=== PATIENT | female | born 1980 | race Caucasian/White ===

== ENCOUNTER 2018-10-15 01:55 | Inpatient (IN) | payer BC ==
[2018-10-15 02:40] VITALS: BMI 26.6
--- NOTE | 2018-10-15 02:45 | OBHP ---
Datetime: 10/15/2018 02:37 IP Adm Impression: Term, intrauterine ; No Active Labor; Ruptured Membranes IP Admit Plan: Admit to unit Admit Comment, IP Provider: 37 presents today with complaints of leaking fluid since 11pm. Gabriella oliver contractions POBHX: X 1 2012 #5.15 PMHX: NONE PSHX; NONE SOCIAL NEGATIVE X 3 MEDS: NONE ALL: NKDA SVE: 3 CAT: 1 NO CONTRACTIONS NOTED ON THE MONTIOR A/P @ 39+ PROM - ADMIT - NPO - IVF - START OXYTOCIN - PLAN D/W DR. LUIS Pelvic Type - PN: Adequate Extremities - PN: Normal Abdomen - PN: Normal Back - PN: Normal Breast - PN: Normal Lungs - PN: Normal Heart - PN: Normal Thyroid - PN: Normal Neurologic - PN: Normal HEENT - PN: Normal General - PN: Normal FHR - Baseline A Provider: 150 Membranes, Provider: Ruptured Contraction Comments Provider: none Gestation - Est Wks by US: 39+ Pool Provider: Positive Nitrazine Provider: Positive EGA AdmitDate IP: 39.3 Vital Signs Provider: Reviewed IP Chief Complaint: Uterine contractions NICHD Variability Prov Fetus A: Moderate 6-25bpm NICHD Accel Fetus A IP Provider: 15X15 FHR Category Provider Fetus A: Category I Dilatation, Provider: 1 Effacement, Provider: 30 Station, Provider: -4 Genitourinary Exam: Normal DTRs - PN: Normal
[2018-10-15] MEDS ORDERED: Oxytocin 30 UNIT 30 UNITS/500 ML BAG IV ONE ×3 (02:46→03:25)
[2018-10-15] MEDS ORDERED: Lactated Ringer's 1,000 ML IV ONE (02:46)
--- NOTE | 2018-10-15 02:52 | OBADHP ---
Datetime: 10/15/2018 02:37 Admit Comment, IP Provider: 37 presents today with complaints of leaking fluid since 11pm. Gabriella oliver contractions POBHX: X 1 2012 #5.15 PMHX: NONE PSHX; NONE SOCIAL NEGATIVE X 3 MEDS: NONE ALL: NKDA SVE: 3 CAT: 1 NO CONTRACTIONS NOTED ON THE MONTIOR A/P @ 39+ PROM - ADMIT - NPO - IVF - START OXYTOCIN - PLAN D/W DR. LUIS Pelvic Type - PN: Adequate Extremities - PN: Normal Abdomen - PN: Normal Back - PN: Normal Breast - PN: Normal Lungs - PN: Normal Heart - PN: Normal Thyroid - PN: Normal Neurologic - PN: Normal HEENT - PN: Normal General - PN: Normal FHR - Baseline A Provider: 150 Membranes, Provider: Ruptured Contraction Comments Provider: none Gestation - Est Wks by US: 39+ Pool Provider: Positive Nitrazine Provider: Positive Vital Signs Provider: Reviewed IP Chief Complaint: Uterine contractions NICHD Variability Prov Fetus A: Moderate 6-25bpm NICHD Accel Fetus A IP Provider: 15X15 FHR Category Provider Fetus A: Category I Dilatation, Provider: 1 Effacement, Provider: 30 Station, Provider: -4 Genitourinary Exam: Normal DTRs - PN: Normal EGA AdmitDate IP: 39.3 IP Adm Impression: Term, intrauterine ; No Active Labor; Ruptured Membranes IP Admit Plan: Admit to unit
[2018-10-15] MEDS ORDERED: Lactated Ringer's 1,000 ML IV SCH (03:00)
[2018-10-15 03:25] LABS: BASO # 0.1 K/uL (0.0-0.2); EOS # 0.2 K/uL (0.0-0.7); EOS % 2.8 % (0.0-4.0); HEMOGLOBIN 12.5 g/dL (11.0-16.0); LYMPH # 1.6 K/uL (1.0-4.3); LYMPH % 21.1 % (20.0-40.0); MEAN CELL VOLUME 94.4 fL (81.0-99.0); MEAN CORPUSCULAR HEMOGLOBIN 31.4 pg (27.0-31.0); MEAN CORPUSCULAR HGB CONC 33.3 g/dL (33.0-37.0); MEAN PLATELET VOLUME 9.8 fL (7.2-11.7); MONO # 0.7 K/uL (0.0-0.8); MONO % 9.1 % (0.0-10.0); NRBC % 0.1 % (0.0-2.0); RBC 3.99 Mil/uL (3.80-5.20); RED CELL DISTRIBUTION WIDTH 14.2 % (11.5-14.5); WHITE BLOOD COUNT 7.6 K/uL (4.8-10.8)
[2018-10-15 03:27] LABS: SQUAMOUS EPITHIAL 8 /hpf (0-5); URINE BILIRUBIN NEGATIVE (NEGATIVE); URINE BLOOD NEGATIVE (NEGATIVE); URINE CLARITY Clear (Clear); URINE COLOR Yellow (YELLOW); URINE GLUCOSE (UA) NORMAL (Normal); URINE HYALINE CAST 0-2 /lpf (0-2); URINE LEUKOCYTE ESTERASE NEG Leu/uL (Negative); URINE PROTEIN 1+ mg/dL (NEGATIVE); URINE UROBILINOGEN NORMAL mg/dL (0.2-1.0)
[2018-10-15 03:37] LABS: ALB/GLOB RATIO 1.1 (1.0-2.1); ALBUMIN 3.4 g/dL (3.5-5.0); ALT/SGPT 24 U/L (9-52); AST/SGOT 23 U/L (14-36); BLOOD UREA NITROGEN 10 mg/dL (7-17); CALCIUM 8.4 mg/dl (8.6-10.4); GFR NON-AFRICAN AMERICAN > 60
[2018-10-15 04:07] LABS: HEPATITIS B SURFACE AG Negative (NEGATIVE)
[2018-10-15] MEDS ORDERED: Bupivacaine HCl/FentaNYL Cit 100 ML EPI ONE (07:20)
[2018-10-15] MEDS ORDERED: Lidocaine Hydrochloride 5 ML INJ ONE (08:29)
[2018-10-15] MEDS ORDERED: Oxycodone/Acetaminophen 5/325 mg Tab PO PRN (09:00)
--- NOTE | 2018-10-15 09:09 | OBDS ---
MATERNAL INFORMATION Provider Comments: pt was fully dilated and pushing. atraumtic, spontaneus delivery of head in MICHAEL p osition. No nuchal cord. Atraumtic, spontaanous delivery of anterior followed by poserior shoulder f ollowed by deliver yof lauren body. Both oral and nasal passages of lauren baby were bulb suctioned. Umbilc al cord was clmaped adn cut. Baby was hadned to mother on abdomen with RN assisatnce. Cord bood adn c ord gases colleczted adn sent x 2. Spontanoeus delivery of intact placenta with membranes, fundus fir m. Good hemostaiss, first degree pereineal laceraion noted adn repaired iwth 2-0 chormic. Good hemos irish, no compications live female ifnat pa 9,9 weight of 6lbs 1 ounce ebl 300ml LABOR SUMMARY EDC: 10/19/2018 00:00 MEMBRANES Membranes Rupture Method: Spontaneous Rupture of Membranes: 10/14/2018 23:00 Amniotic Fluid Color: Clear IDENTIFICATION/MEDS BABY A ID Band Number: [id number] Sensor Number: [id number]
[2018-10-15] MEDS: Multiple Vitamins Tab PO SCH (12:07)
[2018-10-15 16:09] LABS: RAPID PLASMA REAGIN NONREACTIVE (NONREACTIVE)
[2018-10-15] MEDS: Benzocaine/Menthol (Cepacol) Lozenge MT PRN (17:08)
[2018-10-16 08:06] LABS: BASO # 0.1 K/uL (0.0-0.2); BASO % 0.7 % (0.0-2.0); EOS # 0.2 K/uL (0.0-0.7); EOS % 2.3 % (0.0-4.0); HEMOGLOBIN 12.2 g/dL (11.0-16.0); LYMPH # 1.5 K/uL (1.0-4.3); LYMPH % 16.8 % (20.0-40.0); MEAN CORPUSCULAR HEMOGLOBIN 31.7 pg (27.0-31.0); MEAN CORPUSCULAR HGB CONC 33.4 g/dL (33.0-37.0); MEAN PLATELET VOLUME 9.1 fL (7.2-11.7); MONO # 0.6 K/uL (0.0-0.8); MONO % 6.6 % (0.0-10.0); NEUT # 6.4 K/uL (1.8-7.0); NEUT % 73.6 % (50.0-75.0); RBC 3.83 Mil/uL (3.80-5.20); RED CELL DISTRIBUTION WIDTH 14.3 % (11.5-14.5); WHITE BLOOD COUNT 8.7 K/uL (4.8-10.8)
[2018-10-16] MEDS: Multiple Vitamins Tab PO SCH (10:37)
[2018-10-16] MEDS: Benzocaine/Menthol 20%-0.5% Topical Spray (60 ml) TOP PRN (10:38)
[2018-10-16] MEDS: Benzocaine/Menthol (Cepacol) Lozenge MT PRN (10:41)
--- NOTE | 2018-10-16 13:57 | OBPPN ---
Datetime: 10/16/2018 13:54 PP Pain Prov: Within normal limits PP Nausea Prov: Denies PP Flatus Prov: Yes PP BM Prov: No PP Breasts Prov: Normal PP Heart Prov: Normal PP Lungs Prov: Normal PP Abdomen/Uterus Prov: Normal PP Lochia Prov: Normal PP Vulva/Perineum Prov: Normal PP CVA Tenderness Prov: Normal PP Extremities Prov: Normal PP C/S Incision Prov: Not Applicable PP Progress Prov: Normal PP Impression Prov: Normal progression PP Plan Prov: Continue present management PP Progress Note Prov: pt seen and xaiend no compiants vss pe see above a/p s/p PPD #1 dong wlel am cbc pain magent ecouarge breast feedign adn ambaiton anticpae tdc in am Vital Signs Provider PP: Reviewed; Within Normal Limits
--- NOTE | 2018-10-16 13:57 | OBDCSUM ---
Datetime: 10/16/2018 13:54 Discharged to, Provider: Home Follow up at, Provider: Dr Stubbs Disch Instr Activity: Normal activity Disch Instr Diet: Regular Discharge Instructions, Provider: Routine instructions given Discharge Diagnosis, Provider: Term Delivered Discharge Time: 10/17/2018 11:00 Follow up in weeks, Provider: 6 weeks Disch Referrals: None Contraception discussed, Prov: Yes Disch Activity Restrictions: No sexual activity; Nothing in vagina - Healy, tampons, douche Discharge Comment, Provider: rj gaona dc in am Contraception after Delivery: Not Planning to Use
[2018-10-16 16:30] VITALS: PULSE 86
[2018-10-17 08:38] VITALS: BP 95/60; RESP 20; TEMP 98.6; O2SAT 99
[2018-10-17] MEDS: Benzocaine/Menthol 20%-0.5% Topical Spray (60 ml) TOP PRN (09:02)
[2018-10-17] MEDS: Multiple Vitamins Tab PO SCH (09:04)
--- NOTE | 2018-10-17 19:48 | OBPPN ---
Datetime: 10/17/2018 10:32 PP Pain Prov: Within normal limits PP Nausea Prov: Denies PP Flatus Prov: Yes PP BM Prov: Yes PP Breasts Prov: Not Done PP Heart Prov: Normal PP Lungs Prov: Normal PP Abdomen/Uterus Prov: Normal PP Lochia Prov: Normal PP Extremities Prov: Normal PP Comments Phys Exam Prov: VSS PE: Gen: in no acute distress Heart: RRR, no murmurs auscultated Lungs: CTA b/l Abd: +BS, nontender, soft; fundal height 2 finger breadths Ext: no edema, no tenderness PP Impression Prov: Normal progression PP Plan Prov: Continue present management; Discharge PP Progress Note Prov: Patient was seen and examined at bedside in no acute distress and as per Dr. Stubbs's request. Patient reports feeling well today. She says she had total body pain yesterday, but did not get pain medication frequently. The pain medications is helping to reduce the pain when given more frequently. The patient has had normal BM yesterday and denies dysuria. Patient is tolerating d iet. Yesterday, the patient had difficulty with as it was causing her a lot of pain. [facility] [employer] delivery consultant saw the patient. PE: as noted above Assessment/Plan: 37 year old s/p PPD#2 PP H_H 12.2/36.4/ O+ Stable and Satisfactory condition and recovery Patient is stable for discharge to home. Please make and appointment to follow up with OB in 6 weeks for visit. 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 Pelvic rest for 6 weeks: no sex, no tampons, no douching. Please continue the following medications and Rx's given 1. Motrin- take 1 tablet every 6 hours for mild-moderate pain. 2. Percocet- take 1 tablet every 4 hours for SEVERE pain as needed. 3. Hydrocortisone cream- apply cream to the affected area twice a day as needed. 4. Continue PNV daily x 3-4 more weeks 5. Continue Sitz bath and Dermoplast spray as needed. If having fevers, heavy vaginal bleeding, severe abdominal pain, please return to the Emergency Ro om. Chantell Arriaga, PGY2 IP PP Procedures: None Vital Signs Provider PP: Reviewed; Within Normal Limits
== END 2018-10-17 14:00 | disposition home or self-care (01) | DRG 807 ==
LOC: C.EROB 01:55 → C.4D 02:46 → C.4M 10:46
PROVIDERS: ADMIT Obstetrics & Gynecology; ATTEND Obstetrics & Gynecology
PROC: 10E0XZZ Delivery of Products of Conception, External Approach (ICD-10-PCS; principal; 2018-10-15)
PROC: 0HQ9XZZ Repair Perineum Skin, External Approach (ICD-10-PCS; 2018-10-15)
DX: O42.02 Full-term premature rupture of membranes, onset of labor within 24 hours of rupture (principal); Z37.0 Single live birth; O70.0 First degree perineal laceration during delivery; Z3A.39 39 weeks gestation of pregnancy